=== PATIENT | male | born 1950 | race Caucasian/White ===

== ENCOUNTER 2016-10-09 11:25 | Emergency (ER) | payer MEDICARE ==
--- NOTE | 2016-10-09 11:56 | PD ---
HPI Chief Complaint: Code Blue Time Seen by Provider: 11:44 Travel History International Travel<30 days: No Contact w/Intl Traveler<30days: No Traveled to known affect area: No History of Present Illness HPI This 65-year-old male is brought in in cardiac arrest. Paramedics report that he was thrashing around at the scene. He was not able to give any history. He was pulseless at this time and he quickly became unresponsive. He was found on the ground. We do not have any medical history. He was noted that he was cyanotic. Paramedics initiated CPR and gave one dose of epinephrine. The patient was in electromechanical dissociation. History obtained from the after his exploration was that he has been having some pain in his legs and had an ultrasound done. He then called her this morning that he was having shortness of breath walking. [facility] Social History Tobacco Use: No Allergies-Medications Reported Meds & Prescriptions Reported Meds & Active Scripts Active Active Prescriptions or Reported Medications Unobtainable Review of Systems ROS Limitations: Clinical Condition, Intubated, Unresponsive General / Constitutional: No: Fever Physical Exam Narrative GENERAL: Well-developed male. Cyanotic. Distended neck veins SKIN: Focused skin assessment warm/dry. Cyanotic HEAD: Abrasion of the right forehead EYES: Pupils fixed and dilated ENT: No nasal bleeding or discharge. Mucous membranes pink and moist. NECK: Trachea midline. No JVD. CARDIOVASCULAR: No heart tone RESPIRATORY: No spontaneous respirations. Clear lungs with assisted ventilations. GASTROINTESTINAL: Abdomen soft, r, nondistended. Hepatic and splenic margins not palpable. MUSCULOSKELETAL: No obvious deformities. No clubbing. No cyanosis. No edema. NEUROLOGICAL: Unresponsive [facility] Medical Decision Making Medical Screen Exam Complete: Yes Emergency Medical Condition: Yes Medical Record Reviewed: Yes Differential Diagnosis Differential is cardiac arrest Narrative Course CPR was continued. I intubated the patient using direct laryngoscopy. Tube position confirmed with Bilateral Breath Sounds and Fogging of the Tube. CPR Was Continued and Repeated Doses of Adrenaline Were Given. Patient Had Some Slow Complexes without Pulse. He Never Regained Regained Spontaneous Pulses and Has Been Pronounced at 11:37 Diagnosis Primary Impression: Cardiopulmonary arrest Scripts Unable to Obtain Active Prescriptions or Reported Meds Condition: Brennen Walden MD Oct 09, 2016 11:56
== END 2016-10-09 15:17 | disposition expired ==
LOC: PHED 11:25
DX: I46.9 Cardiac arrest, cause unspecified (principal)
CPT/HCPCS: 31500; 92950